=== PATIENT | female | born 1945 | race Caucasian/White ===

== ENCOUNTER 2017-02-04 13:22 | Emergency (ER) | payer BC ==
--- NOTE | 2017-02-04 15:37 | UC ---
Respiratory Complaint HPI - HPI Summary HPI Summary: 71 yo female with 2-3 week hx of nasal congestion/post nasal drip and sore throat no f/c has had left otalgia for about 1 1/2 weeks rare cough no CP or sob - History of Current Complaint Chief Complaint: UCRespiratory Stated Complaint: sinuses,throat,ear complaint Time Seen by Provider: 02/04/17 15:19 Hx Obtained From: Patient Onset/Duration: Gradual Onset, Lasting Weeks Timing: Constant Severity Initially: Mild Severity Currently: Moderate Pain Intensity: 4 Pain Scale Used: 0-10 Numeric Character: Cough: Nonproductive Aggravating Factors: Nothing Associated Signs And Symptoms: Positive: Nasal Congestion, Sinus Discomfort - Risk Factors Pulmonary Embolism Risk Factors: Negative Cardiac Risk Factors: Negative Tuberculosis Risk Factors: Negative - Allergies/Home Medications Allergies/Adverse Reactions: Allergies Allergy/AdvReac Type Severity Reaction Status Date / Time No Known Allergies Allergy Verified 02/04/17 13:59 PMH/Surg Hx/FS Hx/Imm Hx Endocrine History: Dyslipidemia Cardiovascular History: Hypertension Respiratory History: Asthma - Surgical History Surgical History: Yes Surgery Procedure, Year, and Place: RIGHT TOTAL KNEE , ?HYSTERECTOMY, COLONOSCOPY - Family History Known Family History: Positive: Hypertension, Diabetes, Other - [place] - Social History Alcohol Use: None Substance Use Type: None Smoking Status (MU): Former Smoker Type: Cigarettes Length of Time of Smoking/Using Tobacco: 1 PPD x 40 Years Have You Smoked in the Last Year: No When Did the Patient Quit Smoking/Using Tobacco: 2001 - Immunization History Most Recent Influenza Vaccination: December 2016 Review of Systems Constitutional: Negative Skin: Negative Eyes: Negative ENT: Sore Throat, Nasal Discharge, Sinus Congestion, Sinus Pain/Tenderness Respiratory: Cough Cardiovascular: Negative Gastrointestinal: Negative Genitourinary: Negative Motor: Negative Neurovascular: Negative Musculoskeletal: Negative Neurological: Negative Psychological: Negative Is Patient Immunocompromised?: No All Other Systems Reviewed And Are Negative: Yes Physical Exam Triage Information Reviewed: Yes Appearance: Well-Appearing, No Pain Distress, Well-Nourished Vital Signs: Initial Vital Signs Temp 97.9 F 02/04/17 13:56 Pulse 58 02/04/17 13:56 Resp 16 02/04/17 13:56 Pulse Ox 97 02/04/17 13:56 Vital Signs Reviewed: Yes Eyes: Positive: Conjunctiva Clear ENT: Positive: Hearing grossly normal, Nasal congestion, TMs normal, Hoarse voice, Uvula midline. Negative: Tonsillar swelling, Tonsillar exudate, Trismus , Muffled voice, Dental tenderness, Sinus tenderness Neck: Positive: Supple, Nontender, No Lymphadenopathy Respiratory: Positive: Lungs clear, Normal breath sounds, No respiratory distress Cardiovascular: Positive: RRR, No Murmur Musculoskeletal: Positive: ROM Intact, No Edema Neurological: Positive: Alert Psychological Exam: Normal Skin Exam: Normal UC Diagnostic Evaluation - Laboratory O2 Sat by Pulse Oximetry: 97 - normal/not hypoxic Respiratory Course/Dx - Differential Dx/Diagnosis Provider Diagnoses: acute sinusitis. elevated BP Discharge - Discharge Plan Condition: Stable Disposition: HOME Prescriptions: Amoxicillin PO (*) [Amoxicillin 875 MG (*)] 875 mg PO BID #20 tab Patient Education Materials: Sinusitis (ED) Referrals: Jarrell Cooper MD [Primary Care Provider] - As Soon As Possible (Your BP here was 181/77) Additional Instructions: recheck for new or worsening symptoms call you re. your BP
[2017-02-04 15:46] VITALS: BP 166/90
== END 2017-02-04 15:46 | disposition home or self-care (01) ==
LOC: UCCORT 13:22
DX: J01.90 Acute sinusitis, unspecified (principal); R03.0 Elevated blood-pressure reading, without diagnosis of hypertension; E78.5 Hyperlipidemia, unspecified; I10 Essential (primary) hypertension; J45.909 Unspecified asthma, uncomplicated; Z87.891 Personal history of nicotine dependence
CPT/HCPCS: 99212; G0463

== ENCOUNTER 2018-04-01 16:41 | Emergency (ER) | payer BC, MEDICARE ==
[2018-04-01 17:51] VITALS: BP 141/72
--- NOTE | 2018-04-01 18:01 | UC ---
Respiratory Complaint HPI - HPI Summary HPI Summary: harsh cough all week---albuterol (last use 12 noon) without good effect--- denies fever, did get flu vaccine this season, no illness exposure, - History of Current Complaint Chief Complaint: UCGeneralIllness Stated Complaint: COUGH Time Seen by Provider: 04/01/18 17:48 Hx Obtained From: Patient ?: No Onset/Duration: Sudden Onset, Lasting Weeks - 1, Still Present Timing: Constant Pain Intensity: 0 Pain Scale Used: 0-10 Numeric Character: Cough: Nonproductive Aggravating Factors: Exertion, Deep Breaths, Recumbent Position Alleviating Factors: Nothing Associated Signs And Symptoms: Positive: URI - Allergies/Home Medications Allergies/Adverse Reactions: Allergies Allergy/AdvReac Type Severity Reaction Status Date / Time No Known Allergies Allergy Verified 04/01/18 17:40 Home Medications: Home Medications guaiFENesin ER TAB [Mucinex*] 600 mg PO BID PRN 04/01/18 [History Confirmed ] guaiFENesin LIQ* [Robitussin*] 5 mg PO Q4H PRN 04/01/18 [History Confirmed 04/01] PMH/Surg Hx/FS Hx/Imm Hx Previously Healthy: No Cardiovascular History: Hypertension Respiratory History: Asthma GI/ History: Gastroesophageal Reflux - Surgical History Surgical History: Yes Surgery Procedure, Year, and Place: RIGHT TOTAL KNEE , HYSTERECTOMY, COLONOSCOPY. Left total knee - Family History Known Family History: Positive: Hypertension, Diabetes, Other - [place] - Social History Occupation: Retired Lives: With Family Alcohol Use: None Substance Use Type: None Smoking Status (MU): Former Smoker Type: Cigarettes Length of Time of Smoking/Using Tobacco: 1 PPD x 40 Years Have You Smoked in the Last Year: No When Did the Patient Quit Smoking/Using Tobacco: 2001 - Immunization History Most Recent Influenza Vaccination: December 2016 Review of Systems All Other Systems Reviewed And Are Negative: Yes Constitutional: Positive: Negative Skin: Positive: Negative Eyes: Positive: Negative ENT: Positive: Negative Respiratory: Positive: Shortness Of Breath, Cough Cardiovascular: Positive: Negative Gastrointestinal: Positive: Negative Genitourinary: Positive: Negative Motor: Positive: Negative Neurovascular: Positive: Negative Musculoskeletal: Positive: Negative Neurological: Positive: Negative Psychological: Positive: Negative Is Patient Immunocompromised?: No Physical Exam Triage Information Reviewed: Yes Appearance: No Pain Distress, Ill-Appearing - mild, Obese Vital Signs: Initial Vital Signs Temp 98.7 F 04/01/18 17:45 Pulse 54 04/01/18 17:45 Resp 16 04/01/18 17:45 BP 141/72 04/01/18 17:45 Pulse Ox 98 04/01/18 17:45 Vital Signs Reviewed: Yes Eye Exam: Normal Eyes: Positive: Conjunctiva Clear ENT Exam: Normal ENT: Positive: Normal ENT inspection, Hearing grossly normal, Pharynx normal, TMs normal, Uvula midline. Negative: Nasal congestion, Trismus, Muffled voice, Hoarse voice, Dental tenderness, Sinus tenderness Dental Exam: Normal Neck exam: Normal Neck: Positive: Supple, Nontender, No Lymphadenopathy Respiratory Exam: Normal Respiratory: Positive: Chest non-tender, No respiratory distress, No accessory muscle use, Decreased breath sounds Cardiovascular Exam: Normal Cardiovascular: Positive: RRR, Pulses Normal, Brisk Capillary Refill Musculoskeletal Exam: Normal Musculoskeletal: Positive: Strength Intact, ROM Intact, No Edema Neurological Exam: Normal Neurological: Positive: Alert, Muscle Tone Normal Psychological Exam: Normal Skin Exam: Normal UC Diagnostic Evaluation - Laboratory O2 Sat by Pulse Oximetry: 98 Re-Evaluation - Re-Evaluation First Eval Change: Improved - significant increase in air movement and patient reports feeling better as well after duoneb Respiratory Course/Dx - Course Course Of Treatment: prednisone, zithromax, neb q 4-[address] Cooper in 1 week - Differential Dx/Diagnosis Provider Diagnosis: Hypertension, Acute bronchitis, Bronchospasm with bronchitis, acute Discharge - Sign-Out/Discharge Documenting (check all that apply): Patient Departure All imaging exams completed and their final reports reviewed: No Studies - Discharge Plan Condition: Stable Disposition: HOME Prescriptions: Azithromycin TAB* [Zithromax TAB (Z-ARSALAN) 250 mg #6 tabs] 250 mg PO DAILY #4 tab predniSONE TAB* [Deltasone 10 MG TAB*] 10 mg PO DAILY #26 tab Patient Education Materials: Acute Bronchitis (ED), How to Use a Nebulizer (ED) , Hypertension (ED), Bronchospasm (ED) Referrals: Jarrell Cooper MD [Primary Care Provider] - 1 Week - Billing Disposition and Condition Condition: STABLE Disposition: Home
[2018-04-01] MEDS ORDERED: Albuterol/Ipratropium NEB.SOL* Albuterol 2.5 MG/Ipratropium 0.5 MG 3 ML INH ONE (18:04)
[2018-04-01] MEDS ORDERED: predniSONE TAB* 20 MG PO ONE (18:05)
[2018-04-01] MEDS ORDERED: Azithromycin TAB* 250 MG PO ONE (18:05)
== END 2018-04-01 19:18 | disposition home or self-care (01) ==
LOC: UCCORT 16:41
DX: J20.9 Acute bronchitis, unspecified (principal); I10 Essential (primary) hypertension; J45.909 Unspecified asthma, uncomplicated; E66.9 Obesity, unspecified; Z87.891 Personal history of nicotine dependence
CPT/HCPCS: 99213; A9270-GY; G0463; J7512

== ENCOUNTER 2019-02-12 08:58 | Emergency (ER) | payer MEDICARE ==
--- OUTSIDE RECORDS SUMMARY | 2019-02-12 09:20 | XMS REPORT | Summary of Care ---
:1945 Author Organization [facility] Address [address] [place] [address] Care Team Providers Name Role Phone Jarrell Cooper MD Primary Care Provider Reason for Visit Reason Comments Follow-up Encounter Details Date Type Department Care Team Description 01/05/2019 Office Visit [facility] Rheumatology Daysi Brannon MD Rheumatoid arthritis involving multiple sites with positive rheumatoid factor (Primary Dx); [address] Sjogren's syndrome, with unspecified organ involvement; [place] [address] [address] Idiopathic gout of multiple sites, unspecified chronicity [phone] [place] [address] [phone] Allergies No Known Allergiesdocumented as of this encounter (statuses as of 01/05/2019) Medications Medication Sig Dispensed Refills Start End Date Status Date Alum & Mag Take by mouth. 0 Active Hydroxide-Simeth (MYLANTA DOUBLE-STRENGTH PO) losartan (COZAAR) Take 100 mg by 0 Active 100 MG tablet mouth daily. aspirin 81 MG Chew 81 mg by 0 Active chewable tablet Mouth daily. Multiple Take by mouth. 0 Active Vitamins-Minerals (MULTI FOR HER) TABS albuterol Inhale 2 puffs 0 Active (PROVENTIL into the lungs HFA;VENTOLIN HFA) every 6 (six) 108 (90 BASE) hours. MCG/ACT inhaler ipratropium Take 0.5 mg by 0 Active (ATROVENT) 0.02 % nebulization nebulizer solution Four times daily. calcium-vitamin D Take 1 tablet by 0 Active (OSCAL-500) 500-200 mouth daily. MG-UNIT per tablet Azelastine HCl 0.15 by Nasal route. 0 Active % SOLN omeprazole Take 40 mg by 0 Active (PRILOSEC) 40 MG mouth daily. capsule Cholecalciferol Take 1,000 Units 0 Active (VITAMIN D) 1000 by mouth daily. UNITS tablet Fluticasone Inhale into the 0 Active Propionate, Inhal, lungs. 100 MCG/BLIST AEPB allopurinol Take 100 mg by 0 Active (ZYLOPRIM) 100 MG mouth daily. tablet Ascorbic Acid (CHIO Take by mouth. 0 Active VITAMIN C PO) dicyclomine Take 20 mg by 0 Active (BENTYL) 20 MG mouth every 6 tablet (six) hours. predniSONE Take 5 mg by 0 Active (DELTASONE) 5 MG mouth daily. tablet Lactobacillus Take by mouth 0 Active (ACIDOPHILUS/BIFIDU Two Times Daily. S) 100 MG WAFR polyvinyl alcohol Administer 2 0 Active (LIQUIFILM TEARS) drops to both 1.4 % ophthalmic eyes daily as solution needed for dry eyes mycophenolate Take 1,000 mg by 0 Active (CELLCEPT) 500 MG mouth. tablet potassium chloride Take 20 mEq by 0 Active SA (K-DUR,KLOR-CON) mouth daily. 20 MEQ tablet escitalopram Take 10 mg by 0 Active (LEXAPRO) 10 MG mouth. tablet pantoprazole Take 40 mg by 12 Active (PROTONIX) 40 MG mouth daily 9 tablet Dunn Loring-3 Fatty Acids Take by mouth. 0 01/06/20 Discontinued (FISH OIL) 500 MG 19 (No longer CAPS needed) documented as of this encounter (statuses as of 01/05/2019) Active Problems Problem Noted Date Sjogren's syndrome 09/18/2015 Rheumatoid arthritis involving multiple sites with positive rheumatoid 2015 factor Gout of multiple sites 06/13/2015 documented as of this encounter (statuses as of 01/05/2019) Immunizations Name Administration Dates Next Due Influenza Quad IM with Pres (0.5 mL dose) 11/23/2012, 11/09/2011 Influenza Split 12/26/2014 Pneumococcal Conjugate 7 Valent 09/16/2014 Tdap 09/16/2014 Zoster (Shingles) Live (ZOSTAVAX) 04/12/2011 documented as of this encounter Social History Tobacco Use Types Packs/Day Years Used Date Former Smoker Tobacco Cessation: Counseling Given: No Sex Assigned at Date Recorded Not on file Job Start Date Occupation Industry Not on file Not on file Not on file Travel History Travel Start Travel End No recent travel history available. documented as of this encounter Last Filed Vital Signs Vital Sign Reading Time Taken Comments Blood Pressure 144/69 01/05/2019 9:26 AM EDT Pulse 51 01/05/2019 9:26 AM EDT Temperature 36.8 01/05/2019 9:26 AM EDT C (98.3 F) Respiratory Rate 15 01/05/2019 9:26 AM EDT Oxygen Saturation 96% 01/05/2019 9:26 AM EDT Inhaled Oxygen Concentration - - Weight 108.4 kg (239 lb) 01/05/2019 9:26 AM EDT Height 154.9 cm (5' 1") 01/05/2019 9:26 AM EDT Body Mass Index 45.16 01/05/2019 9:26 AM EDT documented in this encounter Progress Notes Daysi Brannon MD - 01/05/2019 9:30 AM EDT Subjective: Patient ID: Carmita Argueta is a 73 y.o. female. HPI This is a 73-year-old white female with history of asthma, degenerative joint disease of cervical spine and lumbar spine, gout, Sjogren's syndrome, depression , COPD, hyperlipidemia, osteoporosis, GERD,hypertension, diverticulitis, obesity came in for follow up. I first time saw her on 06/13/2015 at which time she was referred by primary care doctor for diagnosis and management of gout and rheumatoid arthritis. The patient has chronic neck pain and back pain and found to have degenerative disk disease of cervical spine and lumbar spine. The patient also had bilateral carpal tunnel surgery and both knees replaced by Orthopedics in 2014. She was diagnosed with gout about 4 or 5 years ago. She usedto see manager quality compliance, Dr. Rozina Garner at [facility]. She said her major gout symptoms are at fingers. Currently, she is on allopurinol 100 mg daily. Has not had a gout flare for a long time. She was also diagnosed with rheumatoid arthritis back in 2007. At that time, she had inflammatory arthritis of the hands and toes. She tried prednisone, which did not work. Currently, she is on CellCept a tapered dose from 500 mg 3 tablets twice a day down to 1 tablet twice a day. Her primary caredoctor has been renewing the CellCept for her. She does not report that she ever tried methotrexate, sulfasalazine or Arava. She used to get labs every 3-6 months. She had 1 episode of diverticulitis infection but no other side effects from both medications. The patient does have photosensitivity but no skin rash or ulcer, alopecia, chest pain. She does have chronic epigastric discomfort and GERD. No dysuria or hematuria. No headache. She has dry mouth, dry eyes. No Raynaud's. On 09/18/2015, she came in for follow up. I reviewed labs with the patient. SOHAN homo 250. SSA 379, SSB 134. Suspected connective tissue disease with inflammatory arthritis. Uric acid 2.7. RF, CCP both negative. Her PCP Dr. Cooper discontinued Mycophanolate because GI symptoms. Colonoscopy was fine. EGD results still pending. Will discontinue Allopurinol. She had soft tissue bruises easily at legs, arms,abdomen. She dose have dry mouth, dry eyes. Suspected Sjogren's syndromes. She saw dollyman at [facility] and found to have glaucoma. On 01/22/2016, she came in for follow up. After discontinue Cellcept, her left abdominal discomfort persistent. However, she did notice her connective tissue disease did not change though. She did not discontinue Allopurinol though. No flare up of gout. Uric acid 2.7. I suggested to discontinue Allopurinol and monitor symptoms. She had some neck pain radiating to the back and top of head. Otherwise she was stable. Still have dry eyes and glaucoma. Follow up with dollyman. Mild dry mouth. Her arthritis were more osteoarthritis. On 01/20/2017, the patient came in for follow up. The patient was off allopurinol since last visit, has not have any gout flare-up. Repeat uric acid 4.4. She was also off the CellCept and she did notnotice any difference. Overall, arthritis is stable except she has increased lower back pain, whichI believe is degenerative in nature. She continued to have dry mouth, dry eyes, sore throat, and dry cough. She had an episode of dizziness and vertigo, seems improved with maneuver. She continued to have chronic abdominal pain, diarrhea , which has not been improved significantly. Because her arthritis symptoms are minimal, we will hold off disease modifying anti-rheumatic drugs at this time. On 01/05/2018, the patient came in for follow up. The patient continued to have severe dry mouth, dryeyes, dry skin. Arthritis was about the same. After discontinuing CellCept, she did not notice anydifference. She continued to have diarrhea 4 times a day, persistently. She did not lose any weight though. Recently, her sister had been diagnosed with metastatic cancer, started from her stomach.She is very concerned. She has not done colonoscopy screening for years. I suggested to contact her primary doctor. She might need screening or see a senior sales operations analyst again. On 01/05/2019, the patient came in for follow up. Dictation on: 01/05/2019 9: 44 AM by: DAYSI BRANNON [[id number]] Review of Systems Per HPI. Review of complete ROS is negative. Past Medical History: Diagnosis Date Arthritis Asthma COPD (chronic obstructive pulmonary disease) Depression Diverticulitis GERD (gastroesophageal reflux disease) Gout Hyperlipidemia Hypertension Myopathy Osteoporosis Past Surgical History: Procedure Laterality Date CARPAL TUNNEL RELEASE Bilateral JOINT REPLACEMENT Right knee JOINT REPLACEMENT Left knee Family History Problem Relation Age of Onset Heart disease Mother Hypertension Mother COPD Father Cancer Father Leukemia Cancer Sister leukemia, thyroid, colon Diabetes Sister type II Seizures Brother Cancer Brother Colon cancer Social History Tobacco Use Smoking status: Former Smoker Substance Use Topics Alcohol use: Not on file Drug use: Not on file No Known Allergies Current Outpatient Medications Medication Sig Dispense Refill albuterol (PROVENTIL HFA;VENTOLIN HFA) 108 (90 BASE) MCG/ACT inhaler Inhale 2 puffs into the lungs every 6 (six) hours. allopurinol (ZYLOPRIM) 100 MG tablet Take 100 mg by mouth daily. Alum & Mag Hydroxide-Simeth (MYLANTA DOUBLE-STRENGTH PO) Take by mouth. Ascorbic Acid (CHIO VITAMIN C PO) Take by mouth. aspirin 81 MG chewable tablet Chew 81 mg by Mouth daily. Azelastine HCl 0.15 % SOLN by Nasal route. calcium-vitamin D (OSCAL-500) 500-200 MG-UNIT per tablet Take 1 tablet by mouth daily. Cholecalciferol (VITAMIN D) 1000 UNITS tablet Take 1,000 Units by mouth daily. dicyclomine (BENTYL) 20 MG tablet Take 20 mg by mouth every 6 (six) hours. escitalopram (LEXAPRO) 10 MG tablet Take 10 mg by mouth. Fluticasone Propionate, Inhal, 100 MCG/BLIST AEPB Inhale into the lungs. ipratropium (ATROVENT) 0.02 % nebulizer solution Take 0.5 mg by nebulization Four times daily. Lactobacillus (ACIDOPHILUS/BIFIDUS) 100 MG WAFR Take by mouth Two Times Daily. losartan (COZAAR) 100 MG tablet Take 100 mg by mouth daily. Multiple Vitamins-Minerals (MULTI FOR HER) TABS Take by mouth. mycophenolate (CELLCEPT) 500 MG tablet Take 1,000 mg by mouth. Dunn Loring-3 Fatty Acids (FISH OIL) 500 MG CAPS Take by mouth. omeprazole (PRILOSEC) 40 MG capsule Take 40 mg by mouth daily. pantoprazole (PROTONIX) 40 MG tablet Take 40 mg by mouth daily 12 polyvinyl alcohol (LIQUIFILM TEARS) 1.4 % ophthalmic solution Administer 2 drops to both eyesdaily as needed for dry eyes potassium chloride SA (K-DUR,KLOR-CON) 20 MEQ tablet Take 20 mEq by mouth daily. predniSONE (DELTASONE) 5 MG tablet Take 5 mg by mouth daily. No current facility-administered medications for this visit. Objective: Physical Exam Visit Vitals BP 144/69 Pulse (!) 51 Temp 36.8 C (98.3 F) (Tympanic) Resp 15 Ht 1.549 m (5' 1") Wt 108.4 kg (239 lb) SpO2 96% BMI 45.16 kg/m HEENT: no facial erythema,hearing grossly intact. Chest exam: clear to auscultation, no wheezing or crackles. Good airway entry. Heart exam: regular rate and rhythm, S1, S2 present, no murmur, rub, gallop. Extremities no cyanosis , clubbing or edema. Neuro exam: AAO*3, no focal deficits. Muscle strength preserved. Skin exam: No psoriasis or vasculitis skin rash. Joint exam: both hand DIP and PIP joints deformities, bony enlargement, she was not able to make good fist, tree driller, pinch. Both wrists, elbows, shoulders were normal. both knees replaced. Ankles were normal. Feet had hammer toes. Cervical and lumbar spine both limited ROM. Normal gait and stance. No visits with results within 3 Month(s) from this visit. Latest known visit with results is: Office Visit on 01/05/2018 Component Date Value Ref Range Status White Blood Cell 01/05/2018 4.4 4 - 10 10*3/uL Final Red Blood Cell 01/05/2018 4.40 4.1 - 5.3 10*6/uL Final Hemoglobin 01/05/2018 13.7 11.5 - 15.5 g/dL Final Hematocrit 01/05/2018 41.7 36 - 45 % Final Mean Cell Volume 01/05/2018 94.8 80 - 96 fL Final Mean Cell Hemoglobin 01/05/2018 31.2 27 - 33 pg Final Mean Cell Hgb Conc 01/05/2018 32.9 32.0 - 36.0 g/dL Final Red Cell Dist Width 01/05/2018 14.8* 11.5 - 14.5 % Final Platelet Count 01/05/2018 203 150 - 400 10*3/uL Final Differential Type 01/05/2018 Automated Diff Final Neutrophil 01/05/2018 49 % Final Lymphocyte 01/05/2018 35 % Final Monocyte 01/05/2018 11 % Final Eosinophil 01/05/2018 4 % Final Basophil 01/05/2018 1 % Final Abs Neutrophil 01/05/2018 2.17 1.8 - 7.0 10*3/uL Final Abs Lymphocyte 01/05/2018 1.54 1.2 - 4.0 10*3/uL Final Abs Monocyte 01/05/2018 0.46 0 - 0.8 10*3/uL Final Abs Eosinophil 01/05/2018 0.19 0 - 0.5 10*3/uL Final Abs Basophil 01/05/2018 0.02 0 - 0.2 10*3/uL Final Nucleated Red Blood Cells 01/05/2018 0 0 - 0 /100 Final Albumin 01/05/2018 4.2 3.5 - 5.2 g/dL Final Bilirubin, Total 01/05/2018 0.4 <1.2 mg/dL Final Calcium 01/05/2018 9.3 8.8 - 10.2 mg/dL Final Chloride 01/05/2018 102 98 - 107 mmol/L Final Creatinine 01/05/2018 0.89 0.4 - 1.0 mg/dL Final Glucose 01/05/2018 71 70 - 140 mg/dL Final Alkaline Phosphatase 01/05/2018 98 35 - 104 U/L Final Potassium 01/05/2018 4.0 3.5 - 5.1 mmol/L Final Total Protein 01/05/2018 6.8 6.4 - 8.3 g/dL Final Sodium 01/05/2018 143 136 - 145 mmol/L Final AST/SGO 01/05/2018 24 <32 U/L Final Blood Urea Nitrogen 01/05/2018 15 8 - 23 mg/dL Final Osmolality, Kory 01/05/2018 295 275 - 300 mosm/kg Final BUN/Cre Ratio 01/05/2018 17 Final Bicarbonate 01/05/2018 29 22 - 29 mmol/L Final ALT/SGP 01/05/2018 9 <33 U/L Final Anion Gap 01/05/2018 12 8 - 15 mmol/L Final A/G Ratio 01/05/2018 1.6 Final GFR Non 2008 CDK-* 01/05/2018 63 >60 mL/min/1.73m2 Final GFR 2008 CKD-EPI 01/05/2018 74 >60 mL/min/1.73m2 Final Homogeneous Pattern 01/05/2018 <50 0 - 49 1/dil Final Cytoplasmic Fluorescence Observed Speckled Pattern 01/05/2018 250* 0 - 49 1/dil Final Peripheral Pattern 01/05/2018 <50 0 - 49 1/dil Final SOHAN,Nucleolar pattern 01/05/2018 50* 0 - 49 1/dil Final SSA Autoantibody 01/05/2018 298* 0 - 99 [AU]/mL Final SSB Autoantibody 01/05/2018 343* 0 - 99 [AU]/mL Final Gonzalez Autoantibody 01/05/2018 12 0 - 99 [AU]/mL Final OUTSIDE MACHINIST HELPER Autoantibody 01/05/2018 45 0 - 99 U/ML Final SCL-70 Autoantibody 01/05/2018 7 0 - 99 [AU]/mL Final JOEL-1 Autoantibody 01/05/2018 6 0 - 99 [AU]/mL Final Double Stranded DNA Ab 01/05/2018 39 0 - 99 [IU]/mL Final Centromere antibody 01/05/2018 44 0 - 99 [AU]/mL Final Histone antibody 01/05/2018 86 0 - 99 [AU]/mL Final Sed Rate - ESR 01/05/2018 18 <30 mm/hr Final Assessment: 1. Diagnosed with rheumatoid arthritis. On Cellcept 500mg bid. Off it because of GI symptoms. Positive SSA, SSB. Dry mouth, dry eyes. Suggested Sjogren's syndrome. 2. Had history of gout. On Allopurinol 100mg daily. Uric acid 2.7. Off Allopurinol. Repeat uric acid4.4 in 2016. 3. DJD of cervical spine and lumbar spine. 4. Obesity. BMI 42. 5. Depression. 6. COPD. 7. GERD. 8. Osteoporosis. 9. HTN. 10. Hyperlipidemia. 11. History of diverticulitis. Plan: - Carmita was seen today for follow-up. Diagnoses and all orders for this visit: Rheumatoid arthritis involving multiple sites with positive rheumatoid factor - SOHAN; Future - SOHAN Specificity; Future - SOHAN Specificity - SOHAN Sjogren's syndrome, with unspecified organ involvement - SOHAN; Future - SOHAN Specificity; Future - SOHAN Specificity - SOHAN Idiopathic gout of multiple sites, unspecified chronicity - SOHAN; Future - SOHAN Specificity; Future - SOHAN Specificity - SOHAN - Discontinue Allopurinol. - Discontinue Cellcept. - Activities as tolerated. - RV in 12 months; above findings, analysis and plan were all discussed with the patient and her questions were answered as much as possible. - Discussed about Paleo diet, exercise and lose weight. documented in this encounter Plan of Treatment Name Type Priority Associated Diagnoses Order Schedule SOHAN Lab Routine Rheumatoid arthritis 1 Occurrences starting involving multiple sites 01/05/2019 until 07/08/2019 with positive rheumatoid factor Sjogren's syndrome, with unspecified organ involvement Idiopathic gout of multiple sites, unspecified chronicity SOHAN Specificity Lab Routine Rheumatoid arthritis 1 Occurrences starting involving multiple sites 01/05/2019 until 07/08/2019 with positive rheumatoid factor Sjogren's syndrome, with unspecified organ involvement Idiopathic gout of multiple sites, unspecified chronicity Health Maintenance Due Date Last Done Comments Hepatitis C Screening (B. 1945 [id number]) Breast Cancer Screening 2 07/17/1995 years Colon Cancer Screening 10 yrs 07/17/1995 Osteoporosis Screening 2 yr 2010 Pneumococcal Vaccine: 65+ 2010 09/16/2014 Years (1 of 2 - PCV13) MMR Vaccines (1 of 1 - 05/10/2011 Standard series) Zoster Vaccines (2 of 3) 06/07/2011 04/12/2011 DTaP,Tdap,and Td Vaccines (2 10/14/2014 09/16/2014 - Td) Influenza Vaccine 12/05/2018 12/26/2014, 11/23/2012, 11/09/2011 Varicella Vaccines Aged Out 04/12/2011 No longer eligible based on patient's age to complete this topic Pneumococcal Vaccine: Aged Out 09/16/2014 No longer eligible based Pediatrics (0 to 5 Years) and on patient's age to At-Risk Patients (6 to 64 complete this topic Years) HIB Vaccines Aged Out No longer eligible based on patient's age to complete this topic Hepatitis A Vaccines Aged Out No longer eligible based on patient's age to complete this topic Hepatitis B Vaccines Aged Out No longer eligible based on patient's age to complete this topic IPV Vaccines Aged Out No longer eligible based on patient's age to complete this topic documented as of this encounter Results Not on filedocumented in this encounter Visit Diagnoses Diagnosis Rheumatoid arthritis involving multiple sites with positive rheumatoid factor - Primary Sjogren's syndrome, with unspecified organ involvement Idiopathic gout of multiple sites, unspecified chronicity documented in this encounter
[2019-02-12 09:28] VITALS: BP 156/74
--- NOTE | 2019-02-12 09:56 | UC ---
Respiratory Complaint HPI - HPI Summary HPI Summary: 73 year old female with h/o COPD/ TOB use, presents with wheezing, sinus pressure/ pain, tactile fever, chills, decreased activity x 5-7 days. Patient states she gets same symptoms every year. + cough, productive. + sleep apnea, CPAP - History of Current Complaint Chief Complaint: UCRespiratory Stated Complaint: SOB/WHEEZING Time Seen by Provider: 02/12/19 09:14 Hx Obtained From: Patient ?: No Onset/Duration: Sudden Onset Timing: Constant Severity Initially: Moderate Severity Currently: Moderate Pain Intensity: 4 Pain Scale Used: 0-10 Numeric Character: Cough: Productive Aggravating Factors: Deep Breaths, Recumbent Position - Allergies/Home Medications Allergies/Adverse Reactions: Allergies Allergy/AdvReac Type Severity Reaction Status Date / Time No Known Allergies Allergy Verified 02/12/19 09:21 Home Medications: Home Medications Cetirizine* [ZyrTEC 10 MG TAB*] 10 mg PO DAILY 02/12/19 [History Confirmed 02/12] Dicyclomine CAP* [Bentyl CAP*] 10 mg PO ACHS 02/12/19 [History Confirmed ] Donepezil TAB* [Aricept 5 MG TAB*] 10 mg PO DAILY 02/12/19 [History Confirmed ] Hydrochlorothiazide TAB* [Hydrodiuril TAB*] 25 mg PO DAILY 02/12/19 [History Confirmed 02/12/19] Ipratropium 0.5MG/2.5ML NEB* [Atrovent 0.5 MG NEB.ALEJANDRINA*] 0.5 mg INH Q6H PRN 02/12 [History Confirmed 02/12/19] Pantoprazole TAB * [Protonix TAB*] 40 mg PO DAILY 02/12/19 [History Confirmed ] guaiFENesin [Mucinex] 600 mg PO BID 02/12/19 [History Confirmed 02/12/19] guaiFENesin [Tussin Chest Congestion] 1 dose PO ONCE 02/12/19 [History Confirmed 02/12/19] PMH/Surg Hx/FS Hx/Imm Hx Previously Healthy: Yes Cardiovascular History: Cardiac Disease Respiratory History: COPD - Surgical History Surgical History: Yes Surgery Procedure, Year, and Place: RIGHT TOTAL KNEE , HYSTERECTOMY, COLONOSCOPY. Left total knee - Family History Known Family History: Positive: Hypertension, Diabetes, Other - [place] - Social History Occupation: Retired Alcohol Use: None Substance Use Type: None Smoking Status (MU): Former Smoker Type: Cigarettes Length of Time of Smoking/Using Tobacco: 1 PPD x 40 Years Have You Smoked in the Last Year: No When Did the Patient Quit Smoking/Using Tobacco: 2001 - Immunization History Most Recent Influenza Vaccination: December 2016 Review of Systems All Other Systems Reviewed And Are Negative: Yes Constitutional: Positive: Fever, Chills, Fatigue ENT: Positive: Nasal Discharge, Sinus Congestion, Sinus Pain/Tenderness Respiratory: Positive: Shortness Of Breath, Cough Neurovascular: Positive: Negative Musculoskeletal: Positive: Negative Is Patient Immunocompromised?: No Physical Exam Triage Information Reviewed: Yes Appearance: No Pain Distress, Well-Nourished, Ill-Appearing - mild Vital Signs: Initial Vital Signs Temp 98.5 F 02/12/19 09:19 Pulse 57 02/12/19 09:19 Resp 24 02/12/19 09:19 BP 156/74 02/12/19 09:19 Pulse Ox 99 02/12/19 09:19 Vital Signs Reviewed: Yes Eyes: Positive: Conjunctiva Clear ENT: Positive: Pharynx normal, Nasal congestion, TMs normal, Sinus tenderness. Negative: Pharyngeal erythema, TM bulging, TM dull, TM red, Tonsillar swelling, Tonsillar exudate, Uvula midline Neck: Positive: Supple, Nontender, No Lymphadenopathy. Negative: Nuchal Rigidity, Enlarged Nodes @ Respiratory: Positive: Chest non-tender, Lungs clear, No respiratory distress, No accessory muscle use, Other: - decreased breath sounds RLL. Negative: Respiratory distress, Crackles, Rhonchi, Stridor, Wheezing Cardiovascular: Positive: RRR, No Murmur Musculoskeletal Exam: Normal Neurological Exam: Normal Psychological Exam: Normal Skin Exam: Normal Respiratory Course/Dx - Course Course Of Treatment: - Antibiotics as directed x 7 days - Increase fluid intake - Over the counter medications for symptoms as needed - Return with increased symptoms, shortness of breath, wheezing. - Practice taking deep breaths to inflate lungs and prevent infection Stallion Manager: Tarik Oleary Daniel, ([id number]) Cartridge Feeder: POLY ( POLY) Report Date: 02/12/2019 09:52:00 Report Status: Final ====== Start of Report Content Patient Name: BUFFY FRY Medical Record#: [id number] Ordering Physician: Heather KNAPP Acct.#: [id number] : 02/1946 Age: 73 Sex: F Location: [facility] Exam Date: 02/12/19937 ADM Status: REG ER Order Information: CHEST PA LAT 2 VWS Accession Number: [id number] CPT: 20074 HISTORY: cough, decr. BS RLL COMPARISONS: February 20, 2015 VIEWS: 4: Frontal dual-energy and lateral views of the chest. FINDINGS: CARDIOMEDIASTINAL SILHOUETTE: The cardiomediastinal silhouette is normal. JAIME: The jaime are normal. PLEURA: The costophrenic angles are sharp. No pleural abnormalities are noted. LUNG PARENCHYMA: There is hyperinflation with flattening of the diaphragm and expansion of the AP diameter of the chest. ABDOMEN: The upper abdomen is clear. There is no subphrenic gas. BONES AND SOFT TISSUES: Degenerative changes are noted along the spine. OTHER: None. IMPRESSION : HYPERINFLATION, CONSISTENT WITH COPD. NO ACTIVE CARDIOPULMONARY DISEASE. <Electronically signed by Tarik Oleary MD in [place]> 02/12/19948 Dictated By: Tarik Oleary MD Dictated Date/Time: 02/12/19948 Transcribed Date/Time: 02/12/19948 Copy to: CC:Jarrell Cooper MD; Naresh Reese MD; Heather KNAPP Imaging - [facility] Imaging [facility] [id number] [place] [address] ph [phone]) ph ([phone]) ph ([phone]) ===== End of Report Content - Differential Dx/Diagnosis Differential Diagnosis/HQI/PQRI: Influenza, Laryngitis, VRE, Sinusitis Provider Diagnosis: Sinusitis Discharge ED - Sign-Out/Discharge Documenting (check all that apply): Patient Departure All imaging exams completed and their final reports reviewed: Yes - Discharge Plan Condition: Good Disposition: HOME Prescriptions: Albuterol HFA INHALER* [Ventolin HFA Inhaler*] 1 - 2 puff INH Q4H PRN #1 mdi PRN Reason: shortness of breath, wheezing Amoxicillin/Clavulanate TAB* [Augmentin TAB 875*] 875 mg PO BID #14 tab Patient Education Materials: Sinusitis (ED) Referrals: Jarrell Cooper MD [Primary Care Provider] - Additional Instructions: - Antibiotics as directed x 7 days - Increase fluid intake - Over the counter medications for symptoms as needed - Return with increased symptoms, shortness of breath, wheezing. - Practice taking deep breaths to inflate lungs and prevent infection - Billing Disposition and Condition Condition: GOOD Disposition: Home - Attestation Statements Provider Attestation: Per institutional requirements, I have reviewed the chart, however, I was not consulted specifically or made aware of this patient by the midlevel provider. I did not personally evaluate, interact with , or disposition this patient.
== END 2019-02-12 10:06 | disposition home or self-care (01) ==
LOC: UCCORT 08:58
DX: J32.9 Chronic sinusitis, unspecified (principal); R91.8 Other nonspecific abnormal finding of lung field; J44.9 Chronic obstructive pulmonary disease, unspecified; Z87.891 Personal history of nicotine dependence
CPT/HCPCS: 71046; 99212; G0463